=== PATIENT | female | born 1945 | race Caucasian/White ===

== ENCOUNTER 2017-11-25 07:07 | Emergency (ER) | payer OTHER ==
[~2017-11-25] VITALS: Ht 154.9 cm; Wt 88.9 kg
[2017-11-25] MEDS ORDERED: NIFEDIPINE ER30 MG (07:26)
== END 2017-11-25 15:31 | disposition home or self-care (01) ==
LOC: ER 07:07
DX: R10.11 Right upper quadrant pain (principal)

== ENCOUNTER 2023-03-07 08:50 | Inpatient (IN) | payer OTHER ==
[~2023-03-07] VITALS: Ht 160 cm; Wt 76.7 kg
[~2023-03-07 08:50] MED LIST: NIFEDIPINE ER30 MG
[2023-03-07 10:33] LABS: HEMATOCRIT 42.5 % (36.0-45.00); HEMOGLOBIN 13.9 g/dL (12.0-15.00); MEAN CELL VOLUME 92.3 fL (80.00-100.00); MEAN CORPUSCULAR HEMOGLOBIN 30.2 pg (27.00-32.0); MEAN CORPUSCULAR HGB CONC 32.7 g/dl (32.0-36.0); PLATELET COUNT 240 K/uL (150-450); RED BLOOD COUNT 4.61 M/uL (4.00-6.00); RED CELL DISTRIBUTION WIDTH 13.4 % (11.5-14.5)
[2023-03-07 10:35] LABS: URINE APPEARANCE Turbid; URINE BILIRRUBIN Negative (NEGATIVE); URINE BLOOD Large; URINE COLOR Orange; URINE GLUCOSE Negative (NEGATIVE); URINE LEUKOCYTE Small; URINE NITRATE Positive; URINE PROTEIN 30 (NEGATIVE)
[2023-03-07] MEDS ORDERED: NIFEDIPINE20 MG PO (10:35)
[2023-03-07 10:40] LABS: URINE EPITHELIAL CELLS 2.6 uL (0.0-38.8); URINE WBC 49.4 uL (0.0-23.2)
[2023-03-07 11:10] LABS: INR 1.01; PARTIAL THROMBOPLASTIN TIME 31.6 SECONDS (22.0-34.0); PROTHROMBIN TIME 10.6 SECONDS (9.0-11.5)
[2023-03-07 11:16] LABS: URINE BACTERIA > 9821.2 uL (0.0-1933); URINE RBC > 10558.9 uL (0.0-20.8)
[2023-03-07 11:23] LABS: BILIRUBIN TOTAL 0.59 mg/dL (0.3-1.2); CALCIUM 9.4 mg/dL (8.5-10.1); CREATININE SERUM 0.6 mg/dL (0.55-1.02); GFR 97.2; GLOBULINA 3.6 G/DL (2.4-3.5); POTASSIUM 4.6 mEq/L (3.5-5.1); TOTAL PROTEIN 7.6 gm/dL (6.4-8.2)
[2023-03-13 23:17] LABS: HEMATOCRIT 38.6 % (36.0-45.00); HEMOGLOBIN 12.8 g/dL (12.0-15.00); RED BLOOD COUNT 4.25 M/uL (4.00-6.00)
[2023-03-14 07:12] LABS: HEMOGLOBIN 13.4 g/dL (12.0-15.00); MEAN CORPUSCULAR HEMOGLOBIN 30.7 pg (27.00-32.0); MEAN CORPUSCULAR HGB CONC 33.4 g/dl (32.0-36.0); PLATELET COUNT 217 K/uL (150-450); RED BLOOD COUNT 4.35 M/uL (4.00-6.00); RED CELL DISTRIBUTION WIDTH 13.2 % (11.5-14.5)
[2023-03-15 02:56] LABS: URINE APPEARANCE Turbid; URINE BILIRRUBIN Negative (NEGATIVE); URINE BLOOD Large; URINE COLOR Dark Yellow; URINE GLUCOSE Negative (NEGATIVE); URINE LEUKOCYTE Small; URINE NITRATE Negative
[2023-03-15 02:59] LABS: URINE BACTERIA 85.6 uL (0.0-1933); URINE WBC 51.3 uL (0.0-23.2)
[2023-03-15 03:59] LABS: URINE PROTEIN 100 (NEGATIVE); URINE RBC > 10558.9 uL (0.0-20.8)
[2023-03-15 07:05] LABS: HEMATOCRIT 36.4 % (36.0-45.00); HEMOGLOBIN 12.5 g/dL (12.0-15.00); MEAN CELL VOLUME 91.2 fL (80.00-100.00); MEAN CORPUSCULAR HEMOGLOBIN 31.2 pg (27.00-32.0); MEAN CORPUSCULAR HGB CONC 34.2 g/dl (32.0-36.0); PLATELET COUNT 194 K/uL (150-450); RED BLOOD COUNT 3.99 M/uL (4.00-6.00); RED CELL DISTRIBUTION WIDTH 13.3 % (11.5-14.5)
[2023-03-15] MEDS ORDERED: OXYC1TAB9 PO (07:55)
[2023-03-15] MEDS ORDERED: Septra Ds Tablet PO (07:55)
[2023-03-15] MEDS ORDERED: XARELTO10 MG PO (07:55)
[2023-03-15] MEDS ORDERED: INTEGRA PLUS C1 EACH PO (07:55)
== END 2023-03-15 15:31 | DRG 470 ==
LOC: SURG 03-13 09:00 → O/R 03-13 15:09 → SURG 03-13 15:09
PROVIDERS: Internal Medicine; ADMIT Orthopaedic Surgery Sports Medicine; ATTEND Orthopaedic Surgery Sports Medicine
PROC: 0SRD0J9 Replacement of Left Knee Joint with Synthetic Substitute, Cemented, Open Approach (ICD-10-PCS; principal; 2023-03-13 09:30)
DX: M17.12 Unilateral primary osteoarthritis, left knee (principal); I10 Essential (primary) hypertension; Z20.822 Contact with and (suspected) exposure to COVID-19